=== PATIENT | female | born 2005 | race Caucasian/White ===

== ENCOUNTER → 2025-02-28 08:41 | Outpatient (REF) | payer OTHER, SELFPAY ==
[2025-02-28 09:30] LABS: % Basophils 1.1 % (0-2); % Eosinophils 4.5 % (0-6); % Immature Granulocytes 0.2 % (0-0.5); % Lymphocytes 34.6 % (20.5-51.1); % Monocytes 8.6 % (1.7-9.3); Absolute Basophils 0.1 10^3/uL (0-0.2); Absolute Eosinophils 0.2 10^3/uL (0-0.7); Absolute Lymphocytes 1.9 10^3/uL (1.2-3.4); Absolute Monocytes 0.5 10^3/uL (0.1-0.6); Absolute Neutrophils 2.7 10^3/uL (1.4-6.5); Hematocrit 39.4 % (37.0-47.0); Hemoglobin 13.5 g/dL (12.0-16.0); Mean Corp Hgb Conc. 34.3 g/dL (33.0-37.0); Mean Corpuscular Hgb 29.7 pg (27.0-31.0); Mean Corpuscular Volume 86.6 fL (81.0-99.0); Mean Platelet Volume 9.9 fL (7.4-10.4); Nucleated Red Blood Cells % 0 %; Platelet Count 251 10^3/uL (130-400); Red Blood Cell Count 4.55 10^6/uL (4.20-5.40); Red Cell Dist. Width 12.2 % (11.5-14.5); White Blood Cell Count 5.4 10^3/uL (4.8-10.8)
[2025-02-28 10:52] LABS: ALT (SGPT) 11 U/L (0-35); AST (SGOT) 21 U/L (14-36); Albumin 4.2 g/dl (3.5-5.0); Alkaline Phosphatase 41 U/L (38-126); Blood Urea Nitrogen 15 mg/dl (7-17); Calcium 9.5 mg/dl (8.4-10.2); Carbon Dioxide 24 mmol/L (22-30); Chloride 110 mmol/L (98-107); Glucose 83 mg/dl (70-99); HDL Cholesterol 66 mg/dl; LDL Cholesterol, Calculated 89 mg/dl; Potassium 4.6 mmol/L (3.5-5.1); Sodium 140 mmol/L (135-145); Total Bilirubin 0.7 mg/dl (0.2-1.3); Total Cholesterol 164 mg/dl (50-199); Total Protein 6.8 g/dl (6.3-8.2); Triglyceride 45 mg/dl (10-149); Very Low Density Lipoprotein 9 mg/dl (0-30); eGFR > 60.00
== END ==
LOC: REG 08:41
PROVIDERS: ATTENDING PHYSICIAN Nurse Practitioner Family
DX: Z00.00 Encounter for general adult medical examination without abnormal findings (principal)
CPT/HCPCS: 36415; 80053; 80061; 85025

== ENCOUNTER → 2025-04-12 11:35 | Outpatient (REF) | payer OTHER, SELFPAY ==
[2025-04-12 13:48] LABS: C-Reactive Protein < 5.00 mg/L (0.0-10.00)
[2025-04-12 13:57] LABS: Iron 91 ug/dl (37-170)
[2025-04-12 14:06] LABS: Total Iron Binding Capacity 334 ug/dl (265-497)
[2025-04-12 14:23] LABS: Ferritin 15.6 ng/ml (6.24-137)
== END ==
LOC: REG 11:35
PROVIDERS: ATTENDING PHYSICIAN Pediatrics
DX: R53.83 Other fatigue (principal)
CPT/HCPCS: 36415; 82652; 82728; 83540; 83550; 84443; 85652; 86140

== ENCOUNTER 2025-04-13 19:37 | Emergency (ER) | payer OTHER, SELFPAY ==
[2025-04-13 19:41] VITALS: BP 123/74
[2025-04-13 20:01] VITALS: BP 120/82
--- NOTE | 2025-04-13 20:21 | ED.GENMED ---
History of Present Illness
General
Chief Complaint: Dizziness
Source: patient and family (Mom)
Time Seen by Provider: 04/13/25 20:21
History of Present Illness
History of Present Illness:
Patient has had ongoing nausea for 3 weeks some dizziness. Dizziness is more lightheadedness or feeling like she might pass out. She gets nauseous after she eats. She feels full and bloated but then has to eat more frequently. No true abdominal
pain no weight change bowel movements are normal. Patient is going to school tomorrow for college and family was concerned and wanted her evaluated
Past History
Past History
ED Past Medical History: Other (Lyme disease)
ED Past Surgical History: Gynecological (Hymenectomy) and Other (Jacob teeth)
Review of Systems
Review of Systems
All Other Systems: Not applicable
Constitutional: Denies fever or chills
Respiratory: Reports no symptoms
Cardiac: Reports no symptoms
ABD/GI: Denies diarrhea
Neurological: Reports headache
Phy Exam
Physical Exam
Physical Exam:
GENERAL: Alert and oriented in no apparent distress
EYE: Orbits normal.
NECK: Supple, no thyroid palpable
ENT: Pharynx without erythema
CARDIAC: Regular rate and rhythm without any obvious murmurs.
LUNGS: Clear breath sounds,normal
ABDOMEN: Soft, without focal tenderness or distention
NEUROLOGICAL: Alert and oriented , grossly non-focal
SKIN: Warm and dry, no rash or lesion, no discoloration, skin intact.
MUSCULOSKELETAL: No edema,no deformity.Good color
PSYCH: Normal and appropriate interaction.
Course
Orders/Labs/Results
Orders:
Orders
04/13/25 19:40
EKG [Electrocardiogram (*1)] Urgent
Reason for Study: Vertigo / Dizzy
04/13/25 19:41
EKG- Treatment ONCE
04/13/25 20:31
Test Result ONCE
US Abdomen Complete/Upper Urgent
Comment:
Reason For Exam: Vague upper abdominal fullness and nausea
04/13/25 20:37
CT Head W/o Iv Contrast Urgent
Comment:
Reason For Exam: Headache/nausea
0.9% Sodium Chloride 1000 ml [Nss] 1,000 ml IV BOLUS
04/13/25 20:41
Complete Blood Count/With Diff Urgent
Comprehensive Metabolic Panel Urgent
HCG, Serum Qualitative Screen Urgent
Lipase Urgent
Abnormal Lab Results
04/13/25
20:41
Glucose 117 H mg/dl
(70-99)
04/13/25 20:41
04/13/25 20:41
Vital Signs
Initial and Last Documented VS:
Initial Vital Signs
Temp Pulse Resp BP Pulse Ox
98.2 F 75 15 123/74 99
04/13/25 19:41 04/13/25 19:41 04/13/25 19:41 04/13/25 19:41 04/13/25 19:41
Last Documented Vital Signs
Temp Pulse Resp BP Pulse Ox
98.2 F 78 18 108/68 99
04/13/25 19:41 04/13/25 23:08 04/13/25 23:08 04/13/25 23:08 04/13/25 23:08
MDM/Problems Addressed
Differential Diagnosis Includes:
Patient complaining of ongoing nausea bloating feeling after eating headaches after eating. Exam is unremarkable. Weight is stable. Not describing any cardiac issues or concerning lightheadedness or near syncope.
*Radiology
Radiology exam reviewed: radiology read reviewed (Negative head CT. Slightly fatty liver)
*Pulse Oximetry
SaO2: 99
Oxygen Mode of Delivery: Room air
Patient hypoxic: no
*EKG
Interpreted by ED Provider?: Yes
Interpretation: normal
Comparison EKG: no comparison EKG present
Heart Rate: 67
Rate: normal
Rhythm: sinus and sinus arrhythmia
[place]: normal axis
Interval: normal interval
QRS Pattern: normal QRS
Ischemia: non-specific ST changes
*Pig Iron Loader Interpretation
Rate: normal
Interpretation: normal
Heart Rate: 74
Rhythm: sinus
*Critical Care Note
Total Time (30-74mins, 75-104mins- exclusive of procedures): Not Applicable
Data Reviewed
Review of Other/Old Records Reveals: Labs, Records and Testing
Update Note
Update Note:
Patient has remained medically stable and nontoxic. Symptoms seem more GI related than anything else. She is in a normal sinus rhythm. She does have an occasional run of back ectopic atrial beats. However no serious arrhythmias. I do not feel
that explains her symptoms. Mom and patient were made of the mild fatty liver. She should follow-up with GI.
ED Attending Note
-
Portions of this chart may have been created with voice recognition software.� Occasional wrong word or��sound alike� substitutions may have occurred due to the inherent limitations of voice recognition software.
Discharge Plan
Departure
Patient Disposition: Home (Routine Discharge)
Date of Disposition: 04/13/25
Time of Disposition: 22:54
Patient with high blood pressure during this ER visit?: No
Discharge Problem:
Recurrent nausea/lightheadedness, Mildly fatty liver, Ectopic atrial pacemaker
Instructions: Dizziness, BLOOD PRESSURE
Prescriptions:
No Action
No Current Medications
0
Referrals:
UNKNOWN - PT DOES,NOT KNOW [Family Provider]
Activity Restrictions/Additional Instructions:
I recommend following up with a GI physician. Given that you are leaving for school tomorrow this would likely be somebody down in [place]. Although unlikely to have any significance mentioned that they described a mildly fatty liver.
Also as we discussed, you could follow-up with a camera mechanic down in [place] for completeness
Interventions
Interventions:
*Risk Screen - Suicide Last Done: 04/13/25 19:42
*General Assessment Last Done: 04/13/25 19:41
*Neglect/Abuse Screening Last Done: 04/13/25 19:41
*ED COVID-19 Vaccine History Last Done: 04/13/25 19:41
*Nursing Disposition Last Done: 04/13/25 23:09
ED- Neurological Assessment Last Done: 04/13/25 20:31
ED- Cardiac Assessment Last Done: 04/13/25 20:31
Discharge Date and Time
Discharge Date/Time: 04/13/25 23:11
Print Language: [id number]
[2025-04-13 20:27] VITALS: BP 120/82
[2025-04-13 20:29] VITALS: BMI 18.9
[2025-04-13] MEDS: NSS 1000 IV (20:39)
[2025-04-13 20:48] LABS: Hematocrit 40.4 % (37.0-47.0); Hemoglobin 14.2 g/dL (12.0-16.0); Mean Corp Hgb Conc. 35.1 g/dL (33.0-37.0); Mean Corpuscular Volume 85.1 fL (81.0-99.0); Nucleated Red Blood Cells % 0 %; Platelet Count 286 10^3/uL (130-400); Red Cell Dist. Width 11.9 % (11.5-14.5)
[2025-04-13 21:11] LABS: HCG, Serum Qualitative Screen Negative
[2025-04-13 21:16] VITALS: BP 110/66
[2025-04-13 21:39] LABS: ALT (SGPT) 12 U/L (0-35); AST (SGOT) 22 U/L (14-36); Albumin 4.9 g/dl (3.5-5.0); Alkaline Phosphatase 40 U/L (38-126); Blood Urea Nitrogen 16 mg/dl (7-17); Calcium 10.1 mg/dl (8.4-10.2); Carbon Dioxide 28 mmol/L (22-30); Chloride 106 mmol/L (98-107); Estimated Creatinine Clearance 101 ml/min; Glucose 117 mg/dl (70-99); Lipase 70 U/L (23-300); Potassium 4.4 mmol/L (3.5-5.1); Sodium 141 mmol/L (135-145); Total Protein 7.8 g/dl (6.3-8.2); eGFR > 60.00
[2025-04-13 22:00] VITALS: BP 94/82
[2025-04-13 23:08] VITALS: BP 108/68
== END 2025-04-13 23:11 | disposition home or self-care (01) ==
LOC: EMR 19:37
PROVIDERS: EMERGENCY PHYSICIAN Emergency Medicine
DX: R42 Dizziness and giddiness (principal); K76.0 Fatty (change of) liver, not elsewhere classified; R11.0 Nausea
CPT/HCPCS: 99284; 96360; 70450; 76700; 80053; 83690; 84703; 85025; 93005